=== PATIENT | female | born 1945 ===

== ENCOUNTER 2024-03-19 10:23 | Outpatient (CLI) | payer OTHER ==
[~2024-03-19 10:23] MED LIST: CLARITIN10 M1; MICARDIS80 MG; NEXIUM10 MG; NORVASC2.5 M1; SYNTHROID75 MCG
== END 2024-03-19 10:24 | disposition home or self-care (01) ==
LOC: NUCLEAR 10:23
PROVIDERS: ATTEND Surgery
DX: I73.9 Peripheral vascular disease, unspecified (principal)